=== PATIENT | female | born 1965 | race Caucasian/White ===

== ENCOUNTER → 2017-03-25 | Outpatient (CLI) | payer OTHER ==
[~2017-03-25] MED LIST: LISINOPRIL2.5 MG PO; MACROBID 100 M100 M1 PO; PHENERGAN 25 MG25 M1 PO; XANAX 0.5 MG0.5 M1 PO; ZOFRAN 4 MG ORAL4 M1 DIS
== END ==
LOC: RAD 02:32
DX: Z12.31 Encounter for screening mammogram for malignant neoplasm of breast (principal)

== ENCOUNTER → 2018-05-09 | Outpatient (CLI) | payer OTHER | LOC: BC 00:48 | DX: Z12.31 Encounter for screening mammogram for malignant neoplasm of breast (principal) ==

== ENCOUNTER 2019-05-12 15:39 | Inpatient (IN) | payer OTHER ==
[~2019-05-12] VITALS: Ht 170.2 cm; Wt 74.8 kg
[2019-05-12 16:08] VITALS: BP 141/83
[2019-05-12 16:32] LABS: HEMATOCRIT 37.4 % (37.0-47.0); HEMOGLOBIN 12.4 gm/dL (12.0-15.0); MCH 27.8 pg (26.0-34.0); MCHC 33.2 g/dL (28.0-37.0); MCV 83.8 fL (80.0-100.0); RBC 4.47 mil/uL (4.20-5.00); RDW 13.9 % (10.5-14.5); WBC 6.2 thou/uL (4.0-11.0)
[2019-05-12 16:38] LABS: CALCIUM 8.8 mg/dL (8.5-10.1); CREATININE 0.8 mg/dL (0.6-1.0); POTASSIUM 3.4 mmol/L (3.5-5.1)
[2019-05-12] MEDS ORDERED: VITAMIN E400 UNIT PO (17:03)
[2019-05-12] MEDS ORDERED: TYLENOL EXTRA500 MG PO (17:04)
[2019-05-12] MEDS ORDERED: IBUPROFEN 600600 M1 PO (17:04)
[2019-05-12] MEDS ORDERED: NASACORT10.8 ML INH (17:07)
[2019-05-12 20:05] VITALS: BP 163/84
[2019-05-12] MEDS ORDERED: ATIVAN0.5 MG PO (20:52)
[2019-05-12 21:50] VITALS: BP 141/72
[2019-05-13 04:03] VITALS: BP 103/62
--- NOTE | 2019-05-13 05:14 | NUR ---
PT ARRIVED TO THE UNIT AT AROUND 1930 HRS.S/P R THIRD TOE I/D. MULTILAYERED DRSG IN PLACE. PT USING SURGICAL SHOE WHEN AMBULATING TO THE BATHROOM. PAIN WELL CONTROLLED WITH NORCO. VSS. DENIES NAUSEA. VOIDING OKAY.AFEBRILE.WILL CONTINUE WITH POC TO THE BATHROOM.
[2019-05-13 07:17] LABS: CALCIUM 8.6 mg/dL (8.5-10.1); CREATININE 0.8 mg/dL (0.6-1.0); POTASSIUM 3.4 mmol/L (3.5-5.1)
[2019-05-13 08:28] VITALS: BP 103/51
--- NOTE | 2019-05-13 10:07 | NUR ---
Case opened to follow for dc planning. Pt is a&ox4 and was indep prior to admission. 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 She is single and has 3 adult children who are supportive and available to help as needed. Her son Jeronimo is home from [facility] for the summer and staying with her. She is open to home infusion if recommended at dc. Cm role introduced should the pt need home infusion or hh at dc. Awaiting ID recommendations. Will follow along. UR to check ins to make sure we are in network.
--- NOTE | 2019-05-13 14:44 | NUR ---
ASSUMED CARE OF PT AT 0700. ASSESSMENT COMPLETED. A&O,X4. C/O RIGHT TOE/FOOT PAIN POSTOP. POSTOP DRESSING IN PLACE. PHYSICIAN CHANGED DRESSING AT BEDSIDE THIS AFTERNOON. ID CONSULTED. PAIN MEDS AND IV ABX GIVEN ORDERED. PT IN STABLE CONDITION. UP AD ANASTASIYA WITH ORTHO BOOT. WILL CONTINUE TO MONITOR UNTIL EOS.
[2019-05-13 16:57] VITALS: BP 131/72
[2019-05-13 19:50] VITALS: BP 123/61
--- NOTE | 2019-05-13 23:08 | NUR ---
ASSESSMENT COMPLETED. PT WITH R FOOT ELEVATED. MULTIPLE LAYERED DRSG IN PLACE.PT RATING PAIN AT A 2/10. SHE IS ABLE TO WEAR THE SURGICAL SHOE BY SELF AND WALK TO THE BATHROOM. 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 PT AGREEABLE WITH PLAN. CONTINUES ON IV ABTS. AFEBRILE. NO OTHER CONCERNS AT THIS TIME.
[2019-05-14 05:14] VITALS: BP 115/61
[2019-05-14 07:49] VITALS: BP 125/67
--- NOTE | 2019-05-14 07:53 | NUR ---
ASSUMED CARE OF PT AT 0700. ASSESSMENT CHARTED. A&O,X4. C/O RIGHT TOE PAIN, PAIN MEDS GIVEN ORDERED. RIGHT FOOT DRESSING IN PLACE, GENNY WRAP DRY. BRP. VSS. WILL CONTINUE TO MONITOR.
--- NOTE | 2019-05-14 09:12 | HC ---
[facility] [place] [address] CONSULTATION Name: RAUL WILKINSON Room #: 417-I ADM IN M.R.#: [id number] Admission: 05/12/19 ������������������ Attend Phys: Carlos Garcia MD Discharge: ������������������ Date of : 63 Report #: [id number] THIS REPORT FOR: //name// CC: Ila Garcia DATE OF SERVICE: 05/13/2019 INFECTIOUS DISEASE CONSULTATION ATTENDING PHYSICIAN: Dr. Gilliland. CONSULTATION REQUESTED BY: Dr. Topher Markham. REASON FOR CONSULTATION: Exposed bone, right third toe post-trauma, possible osteomyelitis. HISTORY OF PRESENT ILLNESS: A 54-year-old white woman developed trauma, right third toe evaluated at [facility] ER. X-ray obtained, no broken bone detected. The patient is evaluated by Dr. Topher Markham and the patient had debridement of the right third toe, probing of the wound revealed exposed bone. Cultures were obtained. PAST MEDICAL HISTORY: Hypertension, cholecystectomy, and deviated septum surgery. DRUG ALLERGIES: None listed. Allergic to BEE STINGS. MEDICATIONS: The patient is on treatment with cefazolin 1 gram IV every 8 hours, p.r.n., lorazepam, p.r.n. hydrocodone, lisinopril 10 mg daily. Received tetanus toxoid vaccination. SOCIAL HISTORY: . 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 PHYSICAL EXAMINATION: GENERAL: A well-developed woman, not toxic looking, no distress presenting with following vital signs. VITAL SIGNS: Temperature 97.6, pulse 75, respirations 17, BP 103/51, height 5 feet 7 inches, weight 165 pounds. HEENMT: Normal. NECK: Normal. BREASTS: Deferred. LUNGS: Clear. [facility] [address] [place] [address] CONSULTATION Name: RAUL WILKINSON Room #: 417-I ADM IN M.R.#: [id number] Admission: 05/12/19 ������������������ Attend Phys: Carlos Garcia MD Discharge: ������������������ Date of : 63 Report #: [id number] HEART: S1, S2. No gallop or murmur. ABDOMEN: Soft, no masses or megaly. EXTREMITIES: Dressings right foot, not removed since just applied. Obviously, I must take a look at the wound to make my final recommendation, but my initial advice since the bone was exposed is we must treat with an oral antibiotic for several weeks. NEUROLOGIC: Grossly within normal limits. LABORATORY DATA: Sodium 145, potassium 3.4, BUN 11, creatinine 0.8. WBC 6.2, hemoglobin 12.4, and platelets 244,000. Cultures are all pending at the time of this dictation. ASSESSMENT: 1. Trauma, right third toe with exposed bone, possible treat as osteomyelitis. 2. Hypertension. 3. Previous cholecystectomy. SUGGESTIONS: Recommend ESR, CRP. Await culture result. Continue Ancef, at discharge time, Keflex 500 mg p.o. q.i.d. for at least a couple of weeks. We will try to examine wound after Dr. Topher Markham remove the dressings first time. Dr. Markham, thank you for requesting my suggestions. ��������������������������������������������� <ELECTRONICALLY SIGNED> ���������������������������������������� By: Fortino Roy MD ��������������������������������������������� 05/14/19 0912 1035 0015 Fortino Roy MD /nt
[2019-05-14 13:01] VITALS: BP 125/67
--- NOTE | 2019-05-15 12:06 | PATH ---
[facility] [address] [place] [address] PATHOLOGY RPT PROCEDURE Name: MINHRAUL ANNE Room #: 417-I DIS IN M.R.#: [id number] ������������������ Admission: 05/12/19 ������������������ Date of : 63 Discharge: 05/14/19 Report #: [id number] Path Case #: [id number] [facility] Accession Number: [id number] . 01 Material submitted: . toe - BONE RIGHT THIRD TOE. Modifiers: right, THIRD TOE . 01 Clinical history: . Open fracture/nailbed laceration right third toe . 02 Diagnosis: Toe, bone right third toe, debridement: - Fragments of bone with marked acute and chronic osteomyelitis as well as osteonecrosis. . (IUV:mml; 05/14/2019) QLM/05/14/2019 . 02 Electronically signed: . Claudia Wahl MD, Pathologist NPI- [id number] . 01 Gross description: . . The specimen is received in formalin, labeled "Raul Vargas, right third toe bone" and consists of 4 fragments of garcia-tierney bone measuring 0.8 x 0.3 x 0.2 cm in aggregate which are entirely submitted in A1 following decalcification. (SDY; 05/13/2019) SYU/SYU . 02 Pathologist provided ICD-10: M86.171, M86.671 . 02 CPT . 998936, 408127 Specimen Comment: A courtesy copy of this report has been sent to Specimen Comment: [phone], , . Specimen Comment: Report sent to ,DR ANN / DR HALE Performed at: [address], [place] [id number] MD Renzo Avendaño MD Phone: [phone] Performed at: [address] [id number] MD Claudia Wahl MD Phone: [phone]
[2019-05-15] MEDS ORDERED: HYDROCODON-ACE1 EAC7 PO (12:36)
== END 2019-05-14 13:27 | disposition home or self-care (01) | DRG 517 ==
LOC: 4E 15:39 → ENTRNSPT 05-14 13:20 → EDTRNSPTSTS 05-14 13:20 → 4E 05-14 13:27
PROVIDERS: Nurse Practitioner Family; Podiatrist Foot & Ankle Surgery; ADMIT Internal Medicine
PROC: 0QBQ0ZZ Excision of Right Toe Phalanx, Open Approach (ICD-10-PCS; principal; 2019-05-12)
DX: S92.911B Unspecified fracture of right toe(s), initial encounter for open fracture (principal); I10 Essential (primary) hypertension; F41.9 Anxiety disorder, unspecified; X58.XXXA Exposure to other specified factors, initial encounter; Z91.030 Bee allergy status; Z90.49 Acquired absence of other specified parts of digestive tract; Y93.89 Activity, other specified; Y92.89 Other specified places as the place of occurrence of the external cause; Y99.8 Other external cause status
CPT/HCPCS: 10783; 50010; 50101; 50386; 56526; 57091; 57178; 62110; 62850; 70005

== ENCOUNTER → 2019-06-19 | Outpatient (CLI) | payer OTHER ==
[~2019-06-19] MED LIST changes: +ATIVAN0.5 MG PO; +HYDROCODON-ACE1 EAC7 PO; +IBUPROFEN 600600 M1 PO; +NASACORT10.8 ML INH; +TYLENOL EXTRA500 MG PO; +VITAMIN E400 UNIT PO
== END ==
LOC: RAD 09:12
DX: Z12.31 Encounter for screening mammogram for malignant neoplasm of breast (principal)

== ENCOUNTER → 2020-09-29 | Outpatient (CLI) | payer OTHER | LOC: RAD 08:16 | PROVIDERS: ATTEND Internal Medicine | DX: Z12.31 Encounter for screening mammogram for malignant neoplasm of breast (principal) ==

== ENCOUNTER → 2021-11-21 | Outpatient (CLI) | payer BC | LOC: BC 11-15 09:16 | PROVIDERS: ATTEND Internal Medicine | DX: Z12.31 Encounter for screening mammogram for malignant neoplasm of breast (principal); N63.20 Unspecified lump in the left breast, unspecified quadrant ==

== ENCOUNTER → 2021-11-29 | Outpatient (CLI) | payer BC | LOC: ULTRA 09:54 | PROVIDERS: ATTEND Internal Medicine | DX: N63.12 Unspecified lump in the right breast, upper inner quadrant (principal) ==